=== PATIENT | male | born 1940 | race Hispanic/Latino ===

== ENCOUNTER 2017-08-01 12:52 | Inpatient (IN) | payer OTHER ==
[~2017-08-01] VITALS: Ht 177.8 cm; Wt 128.1 kg
[~2017-08-01 12:52] MED LIST: ASPIR 8181 MG PO; BENADRYL25 M1 PO; DOXAZOSIN MESYLA8 MG PO; FELODIPINE ER5 MG PO; FLONASE16 GM NS; GLIPIZIDE5 MG PO; HYDROCHLOROTHIA25 GM PO; ISOSORBIDE MONO20 MG PO; LEVAQUIN500 MG PO; LIDODERM700 MG TOP; LOSARTAN POTASS25 MG PO; MELOXICAM7.5 MG PO; METFORMIN HCL500 M1 PO; METOPROLOL SUCC50 MG PO; MULTI-VITAMIN1 EACH PO; NITROSTAT0.4 MG SL; NORCO 7.5-3251 EACH PO; OMEGA 3 1,0001 EACH PEG; PANTOPRAZOLE SO20 MG PO; PAXIL20 MG PO; PILOCARPINE HCL5 MG PO; PLAVIX75 MG PO; PROTONIX40 MG/ML PO; TYLENOL WITH C1 EACH PO; VITAMIN D1000 UNIT PO; [UNRECOGNIZED DRUG - CODE]
[2017-08-01] MEDS ORDERED: MORPHINE SULFATE 4 MG/ML SYR IV STA (14:03)
[2017-08-01] MEDS ORDERED: SODIUM CHLORIDE 0.9% 500ML 500 ML IV STA (14:03)
[2017-08-01] MEDS ORDERED: ONDANSETRON HCL INJ 2 MG/ML VIAL IV STA (14:03)
[2017-08-01] MEDS ORDERED: DIATRIZOATE MEGL/DIATRIZOA SOD 30 ML BTL PO ONE (14:43)
[2017-08-01 14:56] LABS: BILIRUBIN,URINE NEGATIVE (NEGATIVE); CLARITY,URINE CLEAR (CLEAR); COLOR,URINE YELLOW (YELLOW); KETONES,URINE NEGATIVE (NEGATIVE); LEUKOCYTE ESTERASE ,URINE NEGATIVE (NEGATIVE); NITRITE,URINE NEGATIVE (NEGATIVE); PROTEIN,URINE DIPSTICK NEGATIVE (NEGATIVE); URINE UROBILINOGEN 0.2 mg/dL (0.2 - 1)
[2017-08-01 15:20] LABS: EPITHELIAL CELLS,URINE RARE /LPF
[2017-08-01 15:57] LABS: BASOPHILS % 0.3 % (0.0-1.0); EOSINOPHILS # (AUTO) 0.1 (0.0-0.4); EOSINOPHILS % 0.9 % (0.0-6.0); HEMOGLOBIN 15.3 g/dL (14.0-18.0); LYMPHOCYTES # (AUTO) 1.5 (1.0-3.2); LYMPHOCYTES % 14.1 % (18.0-39.1); MEAN CORPUSCULAR HEMOGLOBIN 30.2 pg (28-32); MEAN CORPUSCULAR HGB CONC 34.8 g/dL (31-35); MONOCYTES # (AUTO) 0.7 (0.2-0.8); MONOCYTES % 6.8 % (4.4-11.3); NEUTROPHILS % 77.3 % (38.7-80.0); PLATELET COUNT 163 x10e3/uL (140-360); RED BLOOD COUNT 5.06 x10e6/uL (4.3-5.7); RED CELL DISTRIBUTION WIDTH 13.5 % (11.7-14.4)
[2017-08-01 16:14] LABS: INR 1.1; PROTHROMBIN TIME 13.4 seconds (11.9-14.5)
[2017-08-01 16:25] LABS: ALANINE AMINOTRANSFERASE 37 IU/L (0-55); ALBUMIN 4.2 g/dL (3.5-5.0); ALBUMIN/GLOBULIN RATIO 1.3 (0.8-2.0); ALKALINE PHOSPHATASE 74 IU/L (40-150); AMYLASE 81 U/L (25-125); ANION GAP 12.6 mmol/L (8-16); BLOOD UREA NITROGEN 17 mg/dL (7-26); BUN/CREATININE RATIO 19 (6-25); CALCIUM 9.7 mg/dL (8.4-10.2); CARBON DIOXIDE 26 mmol/L (22-29); CHLORIDE 105 mmol/L (98-107); CREATINE KINASE 72 IU/L (30-200); EST GLOMERULAR FILTRATION RATE > 60 ML/MIN (60-); GLUCOSE 130 mg/dL (74-118); LIPASE 19 U/L (8-78); POTASSIUM 3.6 mmol/L (3.5-5.1); SODIUM 140 mmol/L (136-145)
[2017-08-01 16:45] LABS: THYROID STIMULATING HORMONE 0.615 uIU/mL (0.350-4.940)
--- NOTE | 2017-08-01 17:25 | Diagnostic Imaging Report ---
PROCEDURE: CHEST SINGLE (PORTABLE) COMPARISON: Patients [facility], DX, CHEST SINGLE (PORTABLE), 09/21/2014, 11:09. INDICATIONS: UPPER ABD PAIN FINDINGS: LUNGS: No consolidations or edema. No mass. PLEURA: Stable eventration of the right diaphragm. No effusions or pneumothorax. HEART \T\ MEDIASTINUM: Mild stable cardiomegaly. Vascular markings are normal. BONES \T\ SOFT TISSUES: Median sternotomy wires are intact. There are surgical anchors in the left humeral head. CONCLUSION: Stable cardiomegaly without vascular congestion. Stable eventration of the right diaphragm. Dictated by: Vicki Xavier M.D. on 08/01/2017 at 17:26 Electronically approved by: Vicki Xavier M.D. on 08/01/2017 at 17:26
--- NOTE | 2017-08-01 17:38 | Diagnostic Imaging Report ---
PROCEDURE:CT ABDOMEN AND PELVIS WITH CONTRAST COMPARISON:[facility], CT, CT ABDOMEN/PELVIS W, 09/21/2014, 4:19. INDICATIONS:HERNIA, SMALL BOWEL OBSTUCTION TECHNIQUE: Multidetector CT scanning of the abdomen and pelvis was performed after the administration of 100 cc of nonionic contrast. Oral contrast was administered. Coronal and sagittal reformations were obtained. Routine protocol performed. FINDINGS: Lung bases: Stable eventration of the right diaphragm with overlying subsegmental atelectasis or scar. The heart is enlarged. There calcifications of the coronary arteries as well as the mitral and aortic valves. No pericardial effusion. The esophagus is normal. Liver: Diffusely decreased in attenuation with multiple punctate calcifications consistent with granulomatous inflammation. No soft tissue mass Biliary: Absent. No biliary ductal dilatation Spleen: Normal size and contains punctate calcified granulomata Pancreas: Mild fatty atrophy. No mass of the dictation. Adrenal Glands: No mass Kidneys: Symmetric enhancement. The kidneys are lobulated in contour. Solid-appearing nodule in the upper pole the right kidney measures 8 mm and is stable. Lobulated possibly septated cyst in the lower pole of the right kidney measures 10.6 x 4.0 cm and is stable. No mass in the left kidney. 3 mm calculus in the upper pole of the left kidney. No calculus in the right kidney. No hydronephrosis. Gastrointestinal: There are two low attenuating lesions in the antrum and mid body of the stomach measuring 9 mm. These could represent either lipomas or small amount of fluid. There is a small periampullary duodenal diverticulum. Small bowel loops in the midabdomen are distended with fluid measuring up to 3.8 cm in diameter. There is one small bowel loop with equalized enteric contents. This bowel loop measures 2.7 cm in diameter. Small bowel loops in the right lower quadrant are collapsed. There is mild haziness of the small bowel mesentery. Change sutures in the rectum are stable. The large bowel is nondilated. A few diverticula are present. No abnormal mucosal enhancement. Appendix: Nonvisualized and may be absent. Vasculature: Calcifications throughout the aorta and its tributaries without aneurysmal dilatation. Peritoneum/Retroperitoneum: No free fluid or fluid collection. Bladder: Mildly thickened but under distended. The prostate gland measures 4.3 x 4.8 cm in the axial plane. Lymph nodes: No enlarged abdominal or retroperitoneal lymph nodes. No enlarged mesenteric lymph nodes. Musculoskeletal: Mild to moderate degenerative changes of the lumbar spine. There is grade 1 anterolisthesis of L4 on L5 without pars defects. No compression deformities. No lytic or blastic lesions. Soft tissues: Bilateral fat containing inguinal hernias. No bowel containing hernias. CONCLUSION: 1. Distended small bowel loops suggestive of partial small bowel obstruction, possibly due to adhesion. Continued follow-up with abdominal x-rays to assess enteric contrast progression is recommended. No perforation. 2. Healed granulomatous inflammation. 3. Cholecystectomy. 4. Stable subcentimeter solid mass in the right kidney, concerning for renal cell carcinoma. Lobulated and likely septated cyst in the right kidney is stable. Nonobstructing calculus in the left kidney. 5. Hepatic steatosis. Dictated by: Vicki Xavier M.D. on 08/01/2017 at 17:38 Electronically approved by: Vicki Xavier M.D. on 08/01/2017 at 17:38
[2017-08-01] MEDS ORDERED: SODIUM CHLORIDE 0.9% 250ML IRRIG IR SCH ×2 (18:00→18:45)
--- OUTSIDE RECORDS SUMMARY | 2017-08-01 18:41 | XMS REPORT ---
[facility] Address Unknown Phone Unavailable Care Team Providers Care Visual Education Director Name Role Phone RITA ABBOTT Unavailable Unavailable Problems This patient has no known problems. Allergies, Adverse Reactions, Alerts This patient has no known allergies or adverse reactions. Medications This patient has no known medications. Results Test Description Test Time Test Comments Text Results Atomic Results Result Comments CHEST SINGLE (PORTABLE) [address] [address] Patient Name: STEVE FELIPE MR #: [id number] : 1940 Age/Sex: 76/M Req #: [id number] Adm Physician: Ordered by: KRISHAN NDIAYE [facility] Report #: [id number] Location: ER Room/Bed: Procedure: [id number] DX/CHEST SINGLE (PORTABLE) Exam Date: 08/01/17 Exam Time: 1700 REPORT STATUS: Signed PROCEDURE: CHEST SINGLE (PORTABLE) COMPARISON: [facility], DX, CHEST SINGLE (PORTABLE), 09/21/2014, 11:09. INDICATIONS: UPPER ABD PAIN FINDINGS: LUNGS: No consolidations or edema. No mass. PLEURA: Stable eventration of the right diaphragm. No effusions or pneumothorax. HEART T MEDIASTINUM: Mild stable cardiomegaly. Vascular markings are normal. BONES T SOFT TISSUES: Median sternotomy wires are intact. There are surgical anchors in the left humeral head. CONCLUSION: Stable cardiomegaly without vascular congestion. Stable eventration of the right diaphragm. Dictated by: Carmelo Xavier M.D. on 2017 at 17:26 Electronically approved by: Carmelo Xavier M.D. on 2017 at 17:26 Dictated By: CARMELO XAVIER MD 25 Transcribed By : DUSTIN on 08/01/171725 COPY TO: KR[facility] CT ABDOMEN/PELVIS W [place] [address] Patient Name: STEVE FELIPE MR #: [id number] : 1940 Age/Sex: 76/M Req #: [id number] Adm Physician: Ordered by: KRISHAN NDIAYE [facility] Report # : [id number] Location: ER Room/Bed: Procedure: [id number] CT/CT ABDOMEN/PELVIS W Exam Date: 08/01/17 Exam Time: 1700 REPORT STATUS: Signed PROCEDURE: CT ABDOMEN AND PELVIS WITH CONTRAST COMPARISON: [facility], CT, CT ABDOMEN/ PELVIS W, 09/21/2014, 4:19. INDICATIONS: HERNIA, SMALL BOWEL OBSTUCTION TECHNIQUE: Multidetector CT scanning of the abdomen and pelvis was performed after the administration of 100 cc of nonionic contrast. Oral contrast was administered. Coronal and sagittal reformations were obtained. Routine protocol performed. FINDINGS: Lung bases: Stable eventration of the right diaphragm with overlying subsegmental atelectasis or scar. The heart is enlarged. There calcifications of the coronary arteries as well as the mitral and aortic valves. No pericardial effusion. The esophagus is normal. Liver: Diffusely decreased in attenuation with multiple punctate calcifications consistent with granulomatous inflammation. No soft tissue mass Biliary: Absent. No biliary ductal dilatation Spleen: Normal size and contains punctate calcified granulomata Pancreas: Mild fatty atrophy. No mass of the dictation. Adrenal Glands: No mass Kidneys: Symmetric enhancement. The kidneys are lobulated in contour. Solid-appearing nodule in the upper pole the right kidney measures 8 mm and is stable. Lobulated possibly septated cyst in the lower pole of the right kidney measures 10.6 x 4.0 cm and is stable. No mass in the left kidney. 3 mm calculus in the upper pole of the left kidney. No calculus in the right kidney. No hydronephrosis. Gastrointestinal: There are two low attenuating lesions in the antrum and mid body of the stomach measuring 9 mm. These could represent either lipomas or small amount of fluid. There is a small periampullary duodenal diverticulum. Small bowel loops in the midabdomen are distended with fluid measuring up to 3.8 cm in diameter. There is one small bowel loop with equalized enteric contents. This bowel loop measures 2.7 cm in diameter. Small bowel loops in the right lower quadrant are collapsed. There is mild haziness of the small bowel mesentery. Change sutures in the rectum are stable. The large bowel is nondilated. A few diverticula are present. No abnormal mucosal enhancement. Appendix: Nonvisualized and may be absent. Vasculature: Calcifications throughout the aorta and its tributaries without aneurysmal dilatation. Peritoneum /Retroperitoneum: No free fluid or fluid collection. Bladder: Mildly thickened but under distended. The prostate gland measures 4.3 x 4.8 cm in the axial plane. Lymph nodes: No enlarged abdominal or retroperitoneal lymph nodes. No enlarged mesenteric lymph nodes. Musculoskeletal: Mild to moderate degenerative changes of the lumbar spine. There is grade 1 anterolisthesis of L4 on L5 without pars defects. No compression deformities. No lytic or blastic lesions. Soft tissues: Bilateral fat containing inguinal hernias. No bowel containing hernias. CONCLUSION: 1. Distended small bowel loops suggestive of partial small bowel obstruction, possibly due to adhesion. Continued follow-up with abdominal x- rays to assess enteric contrast progression is recommended. No perforation. 2. Healed granulomatous inflammation. 3. Cholecystectomy. 4. Stable subcentimeter solid mass in the right kidney, concerning for renal cell carcinoma. Lobulated and likely septated cyst in the right kidney is stable. Nonobstructing calculus in the left kidney. 5. Hepatic steatosis. Dictated by: Carmelo Xavier M.D. on 08/01/2017 at 17:38 Electronically approved by: Carmelo Xavier M.D. on 08/01/2017 at 17:38 Dictated By: CARMELO XAVIER MD [id number] Transcribed By: DUSTIN on 08/01/178 COPY TO: KRISHAN NDIAYE NP
[2017-08-01] MEDS ORDERED: BENZOCAINE/TETRACAINE/BUTAMBEN AERO SPRAY 56 GM CAN ONE (19:03)
[2017-08-01] MEDS: HYDROMORPHONE 1MG/1ML INJ IV PRN ×2 (19:06→21:28)
[2017-08-01] MEDS: D5.45%NS/KCL 20MEQ 1,000 ML IV SCH (19:07)
[2017-08-01] MEDS: SODIUM CHLORIDE 0.9% 250ML IRRIG IR SCH ×2 (19:15→22:30)
[2017-08-01] MEDS ORDERED: BENZOCAINE/TETRACAINE/BUTAMBEN AERO SPRAY 56 GM CAN TOP ONE (19:15)
[2017-08-01 20:11] VITALS: BP 163/74
[2017-08-01] MEDS ORDERED: SODIUM CHLORIDE 0.9% 50ML 50 ML ONE (21:01)
[2017-08-01] MEDS ORDERED: IOPAMIDOL 370 MG/ML 200 ML INFUS..BTL INJ ONE (21:01)
[2017-08-01 23:05] VITALS: BP 163/74
[2017-08-02] VITALS: BP 146/67
[2017-08-02] MEDS ORDERED: PIPER-TAZ 3.375 GM/50 ML BAG IV SCH
[2017-08-02] MEDS ORDERED: PIPER-TAZ 3.375 GM 50 ML IV SCH
[2017-08-02 04:00] VITALS: BP 158/67
[2017-08-02] MEDS: HYDROMORPHONE 1MG/1ML INJ IV PRN ×4 (05:25→20:37)
[2017-08-02 07:33] LABS: BASOPHILS % 0.1 % (0.0-1.0); EOSINOPHILS # (AUTO) 0.1 (0.0-0.4); EOSINOPHILS % 1.3 % (0.0-6.0); HEMATOCRIT 41.8 % (38.2-49.6); HEMOGLOBIN 14.5 g/dL (14.0-18.0); LYMPHOCYTES # (AUTO) 1.2 (1.0-3.2); LYMPHOCYTES % 15.8 % (18.0-39.1); MEAN CORPUSCULAR HEMOGLOBIN 30.5 pg (28-32); MEAN CORPUSCULAR HGB CONC 34.7 g/dL (31-35); MONOCYTES # (AUTO) 0.6 (0.2-0.8); MONOCYTES % 8.1 % (4.4-11.3); NEUTROPHILS # (AUTO) 5.7 (2.1-6.9); NEUTROPHILS % 74.4 % (38.7-80.0); PLATELET COUNT 144 x10e3/uL (140-360); RED BLOOD COUNT 4.75 x10e6/uL (4.3-5.7); RED CELL DISTRIBUTION WIDTH 13.3 % (11.7-14.4)
[2017-08-02 07:53] LABS: ANION GAP 10.6 mmol/L (8-16); BLOOD UREA NITROGEN 12 mg/dL (7-26); BUN/CREATININE RATIO 16 (6-25); CALCIUM 8.8 mg/dL (8.4-10.2); CARBON DIOXIDE 23 mmol/L (22-29); CHLORIDE 102 mmol/L (98-107); CREATININE, SERUM 0.76 mg/dL (0.72-1.25); EST GLOMERULAR FILTRATION RATE > 60 ML/MIN (60-); GLUCOSE 141 mg/dL (74-118); POTASSIUM 3.6 mmol/L (3.5-5.1); SODIUM 132 mmol/L (136-145)
[2017-08-02 08:26] VITALS: BP 154/71
[2017-08-02] MEDS: D5.45%NS/KCL 20MEQ 1,000 ML IV SCH (10:27)
[2017-08-02] MEDS: PANTOPRAZOLE 40 MG 10ML VIAL IV SCH (10:28)
--- NOTE | 2017-08-02 10:39 | History and Physical ---
PRIMARY CARE PHYSICIAN: Matt Smith MD QUILL LAYER: Av Valenzuela MD CHIEF COMPLAINT: Abdominal distention and small-bowel obstruction. HISTORY: This is a 76-year-old male who has a small-bowel obstruction and abdominal distention. NG tube was placed with significant output. The patient is otherwise stable. CT scan showed distended small bowel and suggested a small-bowel obstruction. The patient is doing better. PAST SURGICAL HISTORY: A partial rectal and partial colon resection years ago due to large polyps. Cholecystectomy. Spinal stenosis with status post lumbar spine laminectomy. Coronary artery bypass times 4 vessels 13 years ago. Right shoulder surgery. PAST MEDICAL HISTORY: Hypertension, coronary disease, diabetes type 2, obesity and history of small right 8-mm stable kidney mass and also a stable right kidney septated cyst, 10.6 x 4.0 cm. SOCIAL HISTORY: Patient does not smoke or use alcohol. No recreational drugs. HOME MEDICATIONS: List reviewed. ALLERGIES: NO KNOWN ALLERGIES. REVIEW OF SYSTEMS: Small-bowel obstruction, abdominal pain, nausea, vomiting. PHYSICAL EXAMINATION VITAL SIGNS: Temperature is 98. Blood pressure 158/67. Pulse rate 64. Respirations 18. GENERAL: The patient is in no acute distress. He is awake. HEENT: Normocephalic, atraumatic. He is anicteric. NECK: Supple grossly. PULMONARY: Diminished breath sounds. CARDIOVASCULAR: Regular rate and rhythm. ABDOMEN: Obese, less distention. EXTREMITIES: No cyanosis or edema. NEUROLOGIC: There is no focal deficit. LABORATORY: Sodium is 132, potassium 3.6, chloride 102, bicarb 23, BUN 12, creatinine 0.7, glucose 141. WBC 7.6, hemoglobin 14.5, hematocrit 41.8, platelets 144. IMPRESSION 1. Small-bowel obstruction. 2. A small renal mass, 8 mm, and also right renal cyst. 3. Abdominal pain, nausea and vomiting, improving with nasogastric tube placement. PLAN: Continue with current management. KUB. Home medications if able. Nothing by mouth for now. Consultation Dr. Av Valenzuela. Continue to monitor the patient's renal mass. Discussed with spouse and the patient as well. Will repeat his lab work. Job#: [id number]
[2017-08-02] MEDS: LIDOCAINE 5% PATCH TP SCH (11:00)
[2017-08-02 11:26] VITALS: BP 154/76
[2017-08-02] MEDS: METOPROLOL TARTRATE INJ 1 MG/ML VIAL IV SCH ×2 (12:00→18:00)
--- NOTE | 2017-08-02 15:03 | Consultation ---
DATE OF CONSULTATION: August 02, 2017 The patient is a 76-year-old male presents with complaints of abdominal pain. He has associated nausea and vomiting one time. Symptoms started about 2 days ago. He has not had a bowel known for 2 days, but is passing flatus. He has had previous abdominal surgery, previous partial colon resection, as well as cholecystectomy. Patient had a CT scan of the abdomen, which reveals findings suggestive of small-bowel obstruction with dilated proximal bowel and collapsed distal bowel. PAST MEDICAL HISTORY: Significant for previous coronary artery bypass surgery, previous lumbar laminectomy, partial colon resection, cholecystectomy, shoulder surgery. History of diabetes, hypertension, coronary artery disease with coronary bypass surgery as stated above. ALLERGIES: HE HAS NO KNOWN ALLERGIES. MEDICATIONS: At home are listed in the chart. FAMILY HISTORY: Noncontributory. SOCIAL HISTORY: The patient does not smoke cigarettes or drink alcohol. REVIEW OF SYSTEMS: Is as stated above. He has had no fever. No weight loss. PHYSICAL EXAMINATION GENERAL: The patient is awake and alert. VITAL SIGNS: Normal. He is not tachycardic. HEENT: Reveals no scleral icterus. NECK: Has no masses. LUNGS: Equal breath sounds are clear bilaterally. CARDIAC: Regular rate and rhythm with no murmur. ABDOMEN: Distended. There is mild diffuse tenderness. There is no mass. There is no hernia apparent. There is healed wounds in the upper abdomen, as well as in the lower midline. There is no mass. EXTREMITIES: Have no edema. NEUROLOGIC: Grossly intact. LAB TESTS: The white blood count on admission was 10.37. Repeat 7.67. Hemoglobin and hematocrit are normal. Platelet count is normal. Chemistries are essentially normal. ASSESSMENT: A 76-year-old male with findings of small-bowel obstruction seen on computerized tomography scan. He is stable at this time, although he says he is not passing anything but a small amount of flatus. No bowel movement. Plan to repeat the abdominal x-ray today and tomorrow morning. There are no signs of peritonitis. No signs of ischemic bowel. Thank you for asking me to see Mr. Connors. Job#: [id number] OR
[2017-08-02 15:43] VITALS: BP 175/79
[2017-08-02] MEDS: ONDANSETRON HCL INJ 2 MG/ML VIAL IV PRN (15:47)
[2017-08-02] MEDS: PIPER-TAZ 3.375 GM 50 ML IV SCH (18:25)
[2017-08-02 20:00] VITALS: BP 115/77
[2017-08-03] VITALS (7 sets, daily range): BP systolic 143–205; BP diastolic 67–90
[2017-08-03] MEDS: PIPER-TAZ 3.375 GM 50 ML IV SCH ×4 (00:01→17:18)
[2017-08-03] MEDS: METOPROLOL TARTRATE INJ 1 MG/ML VIAL IV SCH ×4 (00:02→17:17)
[2017-08-03] MEDS: ONDANSETRON HCL INJ 2 MG/ML VIAL IV PRN ×6 (00:25→22:29)
[2017-08-03] MEDS: HYDROMORPHONE 1MG/1ML INJ IV PRN ×5 (00:25→22:25)
[2017-08-03] MEDS: D5.45%NS/KCL 20MEQ 1,000 ML IV SCH (00:26)
--- NOTE | 2017-08-03 07:25 | Diagnostic Imaging Report ---
PROCEDURE:ABDOMEN COMP INCL UPR OR DECUB INDICATION:Small bowel obstruction COMPARISON:CT abdomen and pelvis 08/01/2017. FINDINGS: Interval placement of an enteric tube, with the tip projecting over the expected region of the pylorus. Interval migration of enteric contrast material ingested for CT examination 08/01/2017 to the colon. Persistent mild dilatation of multiple loops of small bowel to a maximum of 4.4 cm. No luli pneumoperitoneum on the upright radiograph. Regional skeletal structures are grossly intact. CONCLUSION: Interval migration of enteric contrast material to the colon suggests partial small bowel obstruction in the setting of persistent small bowel dilatation. No luli pneumoperitoneum. Dictated by: Av Puga M.D. on 08/03/2017 at 7:25 Electronically approved by: Av Puga M.D. on 08/03/2017 at 7:25
[2017-08-03 07:27] LABS: BASOPHILS % 0.1 % (0.0-1.0); EOSINOPHILS # (AUTO) 0.2 (0.0-0.4); EOSINOPHILS % 1.9 % (0.0-6.0); HEMATOCRIT 44.7 % (38.2-49.6); HEMOGLOBIN 15.7 g/dL (14.0-18.0); LYMPHOCYTES # (AUTO) 1.8 (1.0-3.2); LYMPHOCYTES % 19.7 % (18.0-39.1); MEAN CORPUSCULAR HEMOGLOBIN 30.6 pg (28-32); MEAN CORPUSCULAR HGB CONC 35.1 g/dL (31-35); MEAN CORPUSCULAR VOLUME 87.1 fL (81-99); MONOCYTES # (AUTO) 0.9 (0.2-0.8); MONOCYTES % 9.1 % (4.4-11.3); NEUTROPHILS # (AUTO) 6.4 (2.1-6.9); NEUTROPHILS % 68.9 % (38.7-80.0); PLATELET COUNT 155 x10e3/uL (140-360); RED BLOOD COUNT 5.13 x10e6/uL (4.3-5.7); RED CELL DISTRIBUTION WIDTH 13.2 % (11.7-14.4)
[2017-08-03 07:47] LABS: MAGNESIUM 1.8 MG/DL (1.3-2.1); PHOSPHORUS 3.2 MG/DL (2.3-4.7)
[2017-08-03 07:48] LABS: ANION GAP 11.1 mmol/L (8-16); BLOOD UREA NITROGEN 9 mg/dL (7-26); BUN/CREATININE RATIO 11 (6-25); CALCIUM 9.2 mg/dL (8.4-10.2); CARBON DIOXIDE 28 mmol/L (22-29); CHLORIDE 104 mmol/L (98-107); CREATININE, SERUM 0.84 mg/dL (0.72-1.25); EST GLOMERULAR FILTRATION RATE > 60 ML/MIN (60-); GLUCOSE 142 mg/dL (74-118); POTASSIUM 4.1 mmol/L (3.5-5.1); SODIUM 139 mmol/L (136-145)
[2017-08-03 08:14] LABS: THYROID STIMULATING HORMONE 2.214 uIU/mL (0.350-4.940)
[2017-08-03] MEDS: LIDOCAINE 5% PATCH TP SCH (09:00)
[2017-08-03] MEDS: PANTOPRAZOLE 40 MG 10ML VIAL IV SCH (09:00)
[2017-08-03 09:22] LABS: FOLATE > 20.0 ng/mL (7.0-15.4)
[2017-08-03] MEDS ORDERED: SODIUM CHLORIDE 0.9% 1000ML 1,000 ML IV SCH (13:30)
--- NOTE | 2017-08-03 13:49 | Consultation ---
DATE OF CONSULTATION: August 03, 2017 UROLOGY CONSULTATION REASON FOR CONSULTATION: Right renal mass. HISTORY OF PRESENT ILLNESS: Nabil Connors is a 76-year-old man who passed a kidney stone a number of years ago. He has never had a urological followup for that specific problem to the best of his knowledge nor did he have metabolic stone workup. The patient is here with abdominal pain, and CT revealed a right upper pole small renal mass, and urological consultation was sought. Apparently, the patient has had CT scans in the past that showed irregularity in the kidney there, and he was told it was small and it was benign. The patient denies hematuria, dysuria, or urgency. He denies any urinary tract infections. He does report having enlarged prostate and is taking Cardura 8 mg nightly for that. The patient also takes Topamax for his pains. He has nocturia at least twice. PAST MEDICAL AND SURGICAL HISTORY 1. Status post back surgery. 2. Chronic sciatica. 3. Status post cholecystectomy. 4. Status post excision of 9 cm of colon for a polyp that did contain cancer but was not invading. 5. Status post right shoulder surgery. 6. Diabetes mellitus. 7. Hypertension. 8. Hypercholesterolemia. CURRENT MEDICATIONS: Please refer to the MAR. ALLERGIES: NONE KNOWN. SOCIAL HISTORY: He quit smoking at 18 years old. Denies smoking, ethanol or drug use. Has a very supportive family at the bedside. 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 FAMILY HISTORY: Noncontributory to the active urological problems. REVIEW OF SYSTEMS: As discussed above in the history of present illness and past medical history, otherwise negative for all systems. PHYSICAL EXAMINATION GENERAL: Very pleasant 76-year-old man walking around the room in no apparent distress. VITAL SIGNS: He is currently afebrile, and the vital signs are currently stable. ABDOMEN: Slightly distended. Tender in the epigastrium. There is no costovertebral angle tenderness. There is no obvious evidence of hernia. There is a healed infraumbilical midline scar. The patient has a nasogastric tube in place. GENITOURINARY: Testes are distended bilaterally. Testes and epididymides are bilaterally palpably normal. The patient has a normal uncircumcised male phallus and normal meatus without any lesion. Digital rectal exam is deferred at the present time. For the remaining physical examination systems, please refer to the admission history and physical on the chart. LABORATORY STUDIES: CT scan of the abdomen and pelvis was done as abdominal pain protocol. It reveals a lobulated, possibly septated, cyst in the lower pole of the right kidney that is listed as stable and a solid-appearing nodule in the upper pole of the right kidney, total measures only 8 mm, and that is stable as well. There is a 3-mm calculus in the upper pole of the left kidney and no calculus in the right kidney. There is also evidence of bowel obstruction and hepatic steatosis. The CT scan that was performed here in 2014 reported cyst in the right kidney, but no tumors were mentioned at that time on the reading. White blood cell count is 9320, hemoglobin 15.7, platelets 155,000. His creatinine is normal at 0.84. His calcium is normal at 9.2. PT and PTT are unremarkable. His urinalysis is unremarkable as well. ASSESSMENT 1. An 8-mm right upper pole renal mass that is not very well delineated on this CT done with abdominal pain contrast. 2. Lower pole right renal stone. 3. Small stone in the left kidney. 4. BPH. 5. Nocturia times 2. 6. Current admission for abdominal pain. PLAN 1. Defer management of the abdominal pain to the other physicians on the case. 2. The patient needs urological followup at which point in time we will both follow up his renal mass, work up his recurrent stone disease, as well as decide whether or not management of the stone is warranted. Ongoing urological followup will include evaluation of his BPH and nocturia. Thank you very much for involving us in the care of your patient. We will be happy to follow him along with you, as well as an outpatient. Job#: [id number] cc:PANCHO AN M.D.
[2017-08-03] MEDS ORDERED: HYDRALAZINE HCL 20 MG/ML VIAL IV STA (15:44)
[2017-08-03] MEDS ORDERED: ENALAPRILAT IV INJ 1.25 MG/ML VIAL IV PRN (15:45)
[2017-08-03] MEDS ORDERED: HYDROMORPHONE 1MG/1ML INJ IV PRN ×2 (16:00)
[2017-08-03] MEDS: FLUTICASONE PROPIONATE NASAL SPRAY NS SCH ×2 (16:00→17:00)
[2017-08-03] MEDS: SODIUM CHLORIDE 0.45% 1,000 ML IV SCH (16:00)
[2017-08-03] MEDS ORDERED: ACETAMINOPHEN 1000 MG/100 ML IV PRN (19:30)
[2017-08-03] MEDS ORDERED: LORAZEPAM INJ 2 MG/ML VIAL IV PRN (19:45)
[2017-08-03] MEDS: HYDRALAZINE HCL 20 MG/ML VIAL IV PRN (19:47)
[2017-08-03] MEDS: KETOROLAC TROMETHAMINE 30 MG/ML VIAL IV PRN (19:54)
[2017-08-04] VITALS: BP 162/71
[2017-08-04 00:10] VITALS: BP 179/77
[2017-08-04] MEDS: METOPROLOL TARTRATE INJ 1 MG/ML VIAL IV SCH ×4 (00:30→17:38)
[2017-08-04] MEDS: DIPHENHYDRAMINE HCL INJ 50 MG/ML VIAL IV SCH ×2 (00:34→21:16)
[2017-08-04] MEDS: PIPER-TAZ 3.375 GM 50 ML IV SCH ×4 (00:35→17:41)
[2017-08-04] MEDS: HYDROMORPHONE 1MG/1ML INJ IV PRN ×4 (03:46→22:41)
[2017-08-04] MEDS: ONDANSETRON HCL INJ 2 MG/ML VIAL IV PRN ×3 (03:47→22:41)
[2017-08-04 04:00] VITALS: BP 152/69
[2017-08-04] MEDS: SODIUM CHLORIDE 0.45% 1,000 ML IV SCH ×2 (06:37→22:02)
--- NOTE | 2017-08-04 06:39 | Diagnostic Imaging Report ---
EXAM: ABDOMEN COMP INCL UPR or DECUB, 2 views INDICATION: Small bowel obstruction COMPARISON: None FINDINGS: LINES/TUBES: Nasogastric tube tip terminates in expected location of the antrum of the stomach. BOWEL PATTERN: No evidence for obstruction. Oral contrast is seen throughout the colon to the rectum. SOFT TISSUES: No abnormal calcifications. LUNG BASES: Poorly visualized BONES: No acute findings. IMPRESSION: Nonobstructive bowel gas pattern. Signed by: Dr. Sejal Avila M.D. on 08/04/2017 6:36 AM
[2017-08-04 07:17] LABS: BASOPHILS % 0.2 % (0.0-1.0); EOSINOPHILS # (AUTO) 0.2 (0.0-0.4); EOSINOPHILS % 2.1 % (0.0-6.0); HEMATOCRIT 43.5 % (38.2-49.6); HEMOGLOBIN 15.2 g/dL (14.0-18.0); LYMPHOCYTES # (AUTO) 1.5 (1.0-3.2); LYMPHOCYTES % 17.6 % (18.0-39.1); MEAN CORPUSCULAR HEMOGLOBIN 30.5 pg (28-32); MEAN CORPUSCULAR HGB CONC 34.9 g/dL (31-35); MEAN CORPUSCULAR VOLUME 87.3 fL (81-99); MONOCYTES # (AUTO) 0.8 (0.2-0.8); MONOCYTES % 9.1 % (4.4-11.3); NEUTROPHILS % 70.5 % (38.7-80.0); PLATELET COUNT 172 x10e3/uL (140-360); RED BLOOD COUNT 4.98 x10e6/uL (4.3-5.7); RED CELL DISTRIBUTION WIDTH 13.2 % (11.7-14.4)
[2017-08-04] MEDS: KETOROLAC TROMETHAMINE 30 MG/ML VIAL IV PRN ×2 (07:28→15:15)
[2017-08-04 07:49] LABS: ANION GAP 12.4 mmol/L (8-16); BLOOD UREA NITROGEN 12 mg/dL (7-26); BUN/CREATININE RATIO 15 (6-25); CALCIUM 9.3 mg/dL (8.4-10.2); CARBON DIOXIDE 28 mmol/L (22-29); CHLORIDE 105 mmol/L (98-107); CREATININE, SERUM 0.81 mg/dL (0.72-1.25); EST GLOMERULAR FILTRATION RATE > 60 ML/MIN (60-); GLUCOSE 120 mg/dL (74-118); POTASSIUM 4.4 mmol/L (3.5-5.1); SODIUM 141 mmol/L (136-145)
[2017-08-04 08:00] VITALS: BP 176/73
[2017-08-04] MEDS: PANTOPRAZOLE 40 MG 10ML VIAL IV SCH (09:27)
[2017-08-04] MEDS: LIDOCAINE 5% PATCH TP SCH (09:27)
[2017-08-04] MEDS: FLUTICASONE PROPIONATE NASAL SPRAY NS SCH ×2 (10:39→16:14)
[2017-08-04 12:00] VITALS: BP 143/65
[2017-08-04 16:00] VITALS: BP 164/72
[2017-08-04] MEDS ORDERED: ENOXAPARIN SOD INJ 40 MG/0.4 ML SYR SC SCH (17:00)
[2017-08-05] VITALS: BP 176/63
[2017-08-05 00:14] VITALS: BP 164/72
[2017-08-05] MEDS: METOPROLOL TARTRATE INJ 1 MG/ML VIAL IV SCH ×3 (00:35→12:15)
[2017-08-05] MEDS: PIPER-TAZ 3.375 GM 50 ML IV SCH ×3 (00:45→12:15)
[2017-08-05 04:00] VITALS: BP 160/73
[2017-08-05] MEDS: ONDANSETRON HCL INJ 2 MG/ML VIAL IV PRN (06:36)
[2017-08-05] MEDS: HYDROMORPHONE 1MG/1ML INJ IV PRN (06:36)
[2017-08-05 07:10] VITALS: BP 170/77
[2017-08-05 07:41] VITALS: BP 170/77
[2017-08-05] MEDS: PANTOPRAZOLE 40 MG 10ML VIAL IV SCH (09:21)
[2017-08-05] MEDS: LIDOCAINE 5% PATCH TP SCH (09:21)
[2017-08-05] MEDS: FLUTICASONE PROPIONATE NASAL SPRAY NS SCH (09:21)
[2017-08-05] MEDS: HYDRALAZINE HCL 20 MG/ML VIAL IV PRN (10:50)
[2017-08-05 11:40] VITALS: BP 173/77
[2017-08-05] MEDS: KETOROLAC TROMETHAMINE 30 MG/ML VIAL IV PRN (12:10)
[2017-08-05] MEDS ORDERED: SENNA LAX8.6 MG PO (13:36)
[2017-08-05] MEDS ORDERED: ZOFRAN ODT4 MG SL (13:38)
--- NOTE | 2017-08-05 15:59 | Discharge Summary ---
CONSULTANTS: Dr. Albaro Valenzuela. FINAL DIAGNOSES: 1. Small-bowel loop, partial small-bowel obstruction. Patient is possible the small-bowel obstruction is secondary to adhesion. 1. Incidental finding of a small subcentimeter solid mass in the right kidney. 2. Lobulated and septated cyst in the right kidney. 3. Hepatic steatosis. 4. Chronic headaches and hypertensive urgency, improving. SUMMARY: This is a 76-year-old male with multiple surgical interventions in the past. The patient is with a previous cholecystectomy. Patient came in with a partial small-bowel obstruction associated nausea and vomiting. Incidental finding of the renal cyst and small lesion as mentioned. The patient was seen by Dr. Albaro Bowling. The patient will follow up with Dr. Albaro Bowling. The patient received nasogastric tube placement. There was significant output. The patient's blood pressure was very elevated, and that was treated with IV medications. He is now able to tolerate a full-liquid diet and able to eat appropriately. The patient is stable. Pain resolved. He is comfortable. He will go home and follow up with his PCP in approximately 1 week. He will follow up with Dr. Albaro Bowling to continue to monitor his renal lesion. The patient is stable, discharged home today. Senna-S 1 tablet twice a day, Zofran ODT 4 mg sublingual q.4 hours as needed for nausea and vomiting, and he will resume his home medication. All questions were answered. The patient is stable, discharged home today. Job#: [id number] EV
[2017-08-06] MEDS ORDERED: BACLOFEN10 MG PO (15:52)
[2017-08-06] MEDS ORDERED: ZANTAC300 MG PO (15:52)
[2017-08-06] MEDS ORDERED: TOPIRAMATE100 MG PO (15:52)
[2017-08-06] MEDS ORDERED: SIMVASTATIN20 MG PO (15:52)
== END 2017-08-05 14:06 | disposition home or self-care (01) | DRG 389 ==
LOC: ER 12:52 → ERHOLD 18:38 → MED/SURG3 19:51
PROVIDERS: ADMIT Internal Medicine; ATTEND Internal Medicine
DX: K56.600 Partial intestinal obstruction, unspecified as to cause (principal); Z68.41 Body mass index [BMI] 40.0-44.9, adult; N20.0 Calculus of kidney; N28.89 Other specified disorders of kidney and ureter; N28.1 Cyst of kidney, acquired; N40.1 Benign prostatic hyperplasia with lower urinary tract symptoms; R35.1 Nocturia; K76.0 Fatty (change of) liver, not elsewhere classified; R51 Headache; I10 Essential (primary) hypertension; I25.10 Atherosclerotic heart disease of native coronary artery without angina pectoris; E11.8 Type 2 diabetes mellitus with unspecified complications; E66.9 Obesity, unspecified; Z95.1 Presence of aortocoronary bypass graft; K56.690 Other partial intestinal obstruction
CPT/HCPCS: 36415; 71045; 74177; 80048; 80053; 81001; 82150; 82550; 82553; 82607; 82746; 82948; 83036; 83690; 83735; 83880; 84100; 84443; 84484; 85025; 85610; 85730; 93005; 96367; 99284; J0360; J1170; J1200; J1650; J1885; J2405; J2543; J7030; J7040; Q9967

== ENCOUNTER 2017-08-06 07:28 | Inpatient (IN) | payer OTHER ==
[~2017-08-06] VITALS: Ht 177.8 cm; Wt 117.0 kg
[~2017-08-06 07:28] MED LIST changes: +SENNA LAX8.6 MG PO; +ZOFRAN ODT4 MG SL
--- OUTSIDE RECORDS SUMMARY | 2017-08-06 07:31 | XMS REPORT | Continuity of Care Document ---
Author Author [facility] Organization [facility] Address [address] [place] [address] Phone Unavailable Care Team Providers Care Magneto Electrician Name Role Phone NONSTAFF PCP Unavailable Insurance Providers Guarantor Nabil Connors Address [address] [place] [address] Email [email or web address] Payer [place] [employer] Policy Number [id number] Subscriber's Name Nabil Connors Relationship 18 Self / Same As Patient Group Number [id number] Group Name UA - Medicare Advantage Divis Effective Date 17 Advance Directives Directive Response Recorded Date/Time Does the patient have an advance directive? No 08/01/17 11:02pm If yes, is advance directive on file with [facility]? No 08/01/17 11:02pm If not on file with [facility] will patient provide a copy? No 08/01/17 11:02pm Do you have a Directive to Physician? No 08/01/17 2:01pm Do you have a Medical Power of Warehouse Shipping Clerk? No 08/01/17 2:01pm Do you have an out of hospital Do Not Resuscitate Order? No 08/01/17 2:01pm Do you have any special needs we should be aware of? No 08/01/17 2:01pm Do you have a support person here with you today? Yes 08/01/17 2:01pm Did patient receive Notice of Privacy Practices? Yes 08/01/17 2:01pm Did patient receive patient rights and responsibilities? Yes 08/01/17 2:01pm Problems Medical Problem Onset Date Status Abdominal pain 09/21/2014 Acute Acute calculous cholecystitis 09/21/2014 Acute Diabetes 09/21/2014 Acute Medications Current Home Medications Medication Dose Units Route Directions Days Qty Instructions Start Date Acetaminophen With Codeine (Tylenol With Codeine #3 Tablet) 1 Each Tablet 300 Mg Oral Three Times A Day as needed for Pain Aspirin (Aspir 81) 81 Mg Tablet.dr 81 Mg Oral Daily [place] Cholecalciferol (Vitamin D3) (Vitamin D) 1,000 Unit Capsule 1,000 Mg Oral Daily Clopidogrel Bisulfate (Plavix) 75 Mg Tablet 75 Mg Oral Daily Diphenhydramine Hcl (Benadryl) 25 Mg Capsule 25 Mg Oral Twice A Day Doxazosin Mesylate 8 Mg Tablet 8 Mg Oral Daily Felodipine (Felodipine Er) 5 Mg Tab.er.24h 5 Mg Oral Daily Fluticasone Propionate (Flonase) 16 Gm [place].susp 0 Ea Nasal Twice A Day 10 Days 09/26/14 Glipizide 5 Mg Tablet 5 Mg Oral Daily Hydrochlorothiazide 25 Gm Powder 25 Mg Oral Daily Isosorbide Mononitrate 20 Mg Tablet 60 Mg Oral Twice A Day Lidocaine (Lidoderm) 700 Mg Adh..patch 1 Patch Topically Daily Losartan Potassium 25 Mg Tablet 25 Mg Oral Daily Metformin Hcl (Metformin Hcl Er) 500 Mg Tab.er.24h 1,000 Mg Oral Daily Metoprolol Succinate 50 Mg Tab.er.24h 100 Mg Oral Daily Multivitamin (Multi-Vitamin Daily) 1 Each Tablet 1 Tab Oral Daily Nitroglycerin (Nitrostat) 0.4 Mg Tab.subl 0.4 Mg Sublingual Every 5 Minutes as needed for Chest Pain [place]-3 Fatty Acids/Fish Oil ([place] 3 1,000 Mg Softgel) 1 Each Capsule 1,000 Mg Peg Tube Three Times A Day Ondansetron (Zofran Odt) 4 Mg Tab.rapdis 4 Mg Sublingual Every 4 Hours as needed for Nausea And Vomiting Pantoprazole Sod (Protonix) 40 Mg/Ml Susp 40 Mg Oral Daily 30 Days 09/26/14 Paroxetine Hcl (Paxil) 20 Mg Tablet 20 Mg Oral Daily [place] Hcl 5 Mg Tablet 5 Mg Oral Three Times A Day Sennosides (Senna Lax) 8.6 Mg Tablet 8.6 Mg Oral Twice A Day Past Home Medications Medication Directions Ordered Status Hydrocodone Bit/Acetaminophen ([place] 7.5-325 Tablet) 1 Each Tablet, 1 Ea Oral Every 4 Hours as needed for Abdominal Pain Discontinued Levofloxacin (Levaquin) 500 Mg Tablet, 500 Mg Oral Daily 09/26/14 Discontinued Meloxicam 7.5 Mg Tablet, 7.5 Mg Oral Daily Discontinued Pantoprazole Sodium 20 Mg Tablet.dr, 40 Mg Oral Daily Discontinued Family History Relationship Condition Age at Onset Recorded Date/Time 33 Father Family history of acute myocardial infarction 50's - 60 2014 9:59am 33 Father Family history of cardiac disorder 50's - 60 09/21/2014 10:00am 32 Mother Family history of acute myocardial infarction 60 years & older 01/2015 9:59am Social History Social History Problem Response Recorded Date/Time Onset Date Status Hx Psychiatric Problems No 08/01/2017 11:02pm Not Applicable Not Applicable Hx Eating Disorder No 08/01/2017 11:02pm Not Applicable Not Applicable Hx Substance Use Disorder No 08/01/2017 11:02pm Not Applicable Not Applicable Hx Depression No 08/01/2017 11:02pm Not Applicable Not Applicable Hx Alcohol Use No 08/01/2017 11:02pm Not Applicable Not Applicable Hx Substance Use Treatment No 08/01/2017 11:02pm Not Applicable Not Applicable Hx Physical Abuse No 08/01/2017 11:02pm Not Applicable Not Applicable Smoking Status Start Date Stop Date Former smoker Hospital Discharge Instructions No hospital discharge instruction information available. Plan of Care Discharge Date 08/05/17 2:06pm Disposition HOME, SELF-CARE Instructions/Education Provided Abdominal Pain - Adult Prescriptions See Medication Section Additional Instructions/Education ACTIVITY TOLERATED REGULAR DIET TOLERATED FOLLOW UP WITH YOUR PRIMARY CARE PHYSICIAN IN 1 WEEK FOLLOW UP WITH DR KATE HERRERA IN 1 MONTH AT [phone] Functional Status Query Response Date Recorded Assistive Devices Straight Cane August 01, 2017 11:05pm Ambulation Ability Independent August 01, 2017 11:05pm Toileting Ability Independent August 05, 2017 9:56am Allergies, Adverse Reactions, Alerts No known allergies. Immunizations No immunization information available. Vital Signs Acute Vital Signs Vital Response Date/Time Temperature (Fahrenheit) 98.6 degrees F (97.6 - 99.5) 08/05/2017 11:40am Pulse Pulse Rate (adult) 75 bpm (60 - 90) 08/05/2017 11:40am Respiratory Rate 18 bpm (12 - 24) 08/05/2017 11:40am Blood Pressure 173/77 mm Hg 08/05/2017 11:40am Height 5 ft 10 in 08/01/2017 1:50pm Weight 282.38 lb 08/04/2017 1:13am Body Mass Index 40.5 kg/m^2 08/04/2017 1:13am Results Laboratory Results Test Name Result Units Flags Reference Collection Date/Time Result Date/ Time Comments White Blood Count 8.54 x10e3/uL 4.8-10.8 08/04/2017 6:49am 08/04/2017 7 :39am Red Blood Count 4.98 x10e6/uL 4.3-5.7 08/04/2017 6:49am 08/04/2017 7: 39am Hemoglobin 15.2 g/dL 14.0-18.0 08/04/2017 6:49am 08/04/2017 7:39am Hematocrit 43.5 % 38.2-49.6 08/04/2017 6:49am 08/04/2017 7:39am Mean Corpuscular Volume 87.3 fL 81-99 08/04/2017 6:49am 08/04/2017 7: 39am Mean Corpuscular Hemoglobin 30.5 pg 28-32 08/04/2017 6:49am 08/04/2017 7:39am Mean Corpuscular Hemoglobin Concent 34.9 g/dL 31-35 08/04/2017 6:49am 08/04/2017 7:39am Red Cell Distribution Width 13.2 % 11.7-14.4 08/04/2017 6:49am 2017 7:39am Platelet Count 172 x10e3/uL 140-360 08/04/2017 6:49am 08/04/2017 7: 39am Neutrophils (%) (Auto) 70.5 % 38.7-80.0 08/04/2017 6:49am 08/04/2017 7: 39am Lymphocytes (%) (Auto) 17.6 % L 18.0-39.1 08/04/2017 6:49am 08/04/2017 7 :39am Monocytes (%) (Auto) 9.1 % 4.4-11.3 08/04/2017 6:49am 08/04/2017 7: 39am Eosinophils (%) (Auto) 2.1 % 0.0-6.0 08/04/2017 6:49am 08/04/2017 7: 39am Basophils (%) (Auto) 0.2 % 0.0-1.0 08/04/2017 6:49am 08/04/2017 7:39am IM GRANULOCYTES % 0.5 % 0.0-1.0 08/04/2017 6:49am 08/04/2017 7:39am Neutrophils # (Auto) 6.0 2.1-6.9 08/04/2017 6:49am 08/04/2017 7:39am Lymphocytes # (Auto) 1.5 1.0-3.2 08/04/2017 6:49am 08/04/2017 7:39am Monocytes # (Auto) 0.8 0.2-0.8 08/04/2017 6:49am 08/04/2017 7:39am Eosinophils # (Auto) 0.2 0.0-0.4 08/04/2017 6:49am 08/04/2017 7:39am Basophils # (Auto) 0.0 0.0-0.1 08/04/2017 6:49am 08/04/2017 7:39am Absolute Immature Granulocyte (auto 0.04 x10e3/uL 0-0.1 08/04/2017 6: 49am 08/04/2017 7:39am Prothrombin Time 13.4 seconds 11.9-14.5 08/01/2017 3:30pm 08/01/2017 4: 16pm Prothromb Time International Ratio 1.10 08/01/2017 3:30pm 2017 4:16pm Oral Anticoagulant Therapy INR Values: 1. Low Intensity Therapy 1.5 - 2.0 2. Moderate Intensity Therapy 2.0 - 3.0 3. High Intensity Therapy(1) 2.5 - 3.5 4. High Intensity Therapy(2) 3.0 - 4.0 5. Panic Value INR > 5.0 Activated Partial Thromboplast Time 36.0 seconds H 23.8-35.5 08/01/2017 3 :30pm 08/01/2017 4:16pm Urine Color YELLOW YELLOW 08/01/2017 1:54pm 08/01/2017 2:57pm Urine Clarity CLEAR CLEAR 08/01/2017 1:54pm 08/01/2017 2:57pm Urine Specific [place] 1.020 1.010-1.025 08/01/2017 1:54pm 2017 2:57pm Urine pH 5 5 - 7 08/01/2017 1:54pm 08/01/2017 2:57pm Urine Leukocyte Esterase NEGATIVE NEGATIVE 08/01/2017 1:54pm 2017 2:57pm Urine Nitrite NEGATIVE NEGATIVE 08/01/2017 1:54pm 08/01/2017 2:57pm Urine Protein NEGATIVE NEGATIVE 08/01/2017 1:54pm 08/01/2017 2:57pm Urine Glucose (UA) NEGATIVE NEGATIVE 08/01/2017 1:54pm 08/01/2017 2: 57pm Urine Ketones NEGATIVE NEGATIVE 08/01/2017 1:54pm 08/01/2017 2:57pm Urine Urobilinogen 0.2 mg/dL 0.2 - 1 08/01/2017 1:54pm 08/01/2017 2: 57pm Urine Bilirubin NEGATIVE NEGATIVE 08/01/2017 1:54pm 08/01/2017 2: 57pm Urine Blood NEGATIVE NEGATIVE 08/01/2017 1:54pm 08/01/2017 2:57pm Urine WBC NONE /HPF 0-5 08/01/2017 1:54pm 08/01/2017 3:20pm Urine RBC NONE /HPF 0-5 08/01/2017 1:54pm 08/01/2017 3:20pm Urine Bacteria NONE /HPF NONE 08/01/2017 1:54pm 08/01/2017 3:20pm Urine Epithelial Cells RARE /LPF NONE 08/01/2017 1:54pm 08/01/2017 3: 20pm Sodium Level 141 mmol/L 136-145 08/04/2017 6:49am 08/04/2017 7:50am Potassium Level 4.4 mmol/L 3.5-5.1 08/04/2017 6:49am 08/04/2017 7:50am Chloride Level 105 mmol/L 98-107 08/04/2017 6:49am 08/04/2017 7:50am Carbon Dioxide Level 28 mmol/L 08/04/2017 6:49am 08/04/2017 7: 50am Anion Gap 12.4 mmol/L 808/04/2017 6:49am 08/04/2017 7:50am Blood Urea Nitrogen 12 mg/dL 12-0808/04/2017 6:49am 08/04/2017 7:50am Creatinine 0.81 mg/dL 0.72-1.25 08/04/2017 6:49am 08/04/2017 7:50am BUN/Creatinine Ratio 15 11-0708/04/2017 6:49am 08/04/2017 7:50am Estimat Glomerular Filtration Rate > 60 ML/MIN 6008/04/2017 6:49am 7:50am Ranges were taken from the National Kidney Disease Education Program and the National Kidney Foundation literature. Reference ranges: 60 or greater: Normal 16-59 (for 3 consecutive months): Chronic kidney disease 15 or less: Kidney failure Glucose Level 120 mg/dL H 74-118 08/04/2017 6:49am 08/04/2017 7:50am Calcium Level 9.3 mg/dL 8.4-10.2 08/04/2017 6:49am 08/04/2017 7:50am Bedside Glucose 162 mg/dL H 70-120 08/05/2017 10:52am 08/05/2017 11: 47am Meter ID: [id number] Hemoglobin A1c Percent 5.4 % 4.0-7.0 08/03/2017 7:00am 08/03/2017 7: 55am Phosphorus Level 3.2 MG/DL 2.3-4.7 08/03/2017 7:00am 08/03/2017 7:49am Magnesium Level 1.8 MG/DL 1.3-2.1 08/03/2017 7:00am 08/03/2017 7:49am Total Bilirubin 1.2 mg/dL 0.2-1.2 08/01/2017 3:30pm 08/01/2017 4:27pm Aspartate Amino Transf (AST/SGOT) 24 IU/L 5-34 08/01/2017 3:30pm 2017 4:27pm Alanine Aminotransferase (ALT/SGPT) 37 IU/L 0-55 08/01/2017 3:30pm 4:27pm Total Protein 7.4 g/dL 6.5-8.1 08/01/2017 3:30pm 08/01/2017 4:27pm Albumin 4.2 g/dL 3.5-5.0 08/01/2017 3:30pm 08/01/2017 4:27pm Globulin 3.2 g/dL 2.3-3.5 08/01/2017 3:30pm 08/01/2017 4:27pm Albumin/Globulin Ratio 1.3 0.8-2.0 08/01/2017 3:30pm 08/01/2017 4: 27pm Alkaline Phosphatase 74 IU/L 40-150 08/01/2017 3:30pm 08/01/2017 4: 27pm B-Type Natriuretic Peptide 43.5 pg/mL 0-100 08/01/2017 3:30pm 2017 4:20pm Creatine Kinase 72 IU/L 30-200 08/01/2017 3:30pm 08/01/2017 4:27pm Creatine Kinase MB 5.60 ng/mL H 0-5.0 08/01/2017 3:30pm 08/01/2017 4: 45pm Troponin I 0.022 ng/mL 0-0.300 08/01/2017 3:30pm 08/01/2017 4:45pm Amylase Level 81 U/L 25-125 08/01/2017 3:30pm 08/01/2017 4:27pm Lipase 19 U/L 8-78 08/01/2017 3:30pm 08/01/2017 4:27pm Vitamin B12 Level 360 pg/mL 213-816 08/03/2017 7:00am 08/03/2017 9: 22am Folate > 20.0 ng/mL H 7.0-15.4 08/03/2017 7:00am 08/03/2017 9:22am Thyroid Stimulating Hormone (TSH) 2.214 uIU/mL 0.350-4.940 08/03/2017 7: 00am 08/03/2017 8:17am Procedures Procedure Status Date Provider(s) Computed tomography of abdomen and pelvis with contrast Active 08/01/17 KRISHAN NDIAYE MEDIA RELATIONS MANAGER Encounters Encounter Location Arrival/Admit Date Discharge/Depart Date Attending Provider Discharged Inpatient [facility] 08/01/17 6:38pm 08/05/17 2:06pm APRIL CROUCH MD
[2017-08-06] MEDS ORDERED: SODIUM CHLORIDE 0.9% 1000ML 1,000 ML IV STA (08:23)
[2017-08-06] MEDS ORDERED: NITROGLYCERIN 2% OINT 1 GM PKT TOP ONE (08:30)
[2017-08-06] MEDS ORDERED: SODIUM CHLORIDE 0.9% 1000ML 1,000 ML ONE (08:37)
[2017-08-06] MEDS ORDERED: NITROGLYCERIN 2% OINT 1 GM PKT ONE (08:38)
[2017-08-06 08:56] LABS: BASOPHILS % 0.5 % (0.0-1.0); EOSINOPHILS # (AUTO) 0.4 (0.0-0.4); EOSINOPHILS % 5.4 % (0.0-6.0); HEMATOCRIT 40.4 % (38.2-49.6); HEMOGLOBIN 14.4 g/dL (14.0-18.0); LYMPHOCYTES # (AUTO) 1.9 (1.0-3.2); LYMPHOCYTES % 29.1 % (18.0-39.1); MEAN CORPUSCULAR HEMOGLOBIN 30.4 pg (28-32); MEAN CORPUSCULAR HGB CONC 35.6 g/dL (31-35); MEAN CORPUSCULAR VOLUME 85.4 fL (81-99); MONOCYTES # (AUTO) 0.6 (0.2-0.8); MONOCYTES % 8.9 % (4.4-11.3); NEUTROPHILS # (AUTO) 3.7 (2.1-6.9); NEUTROPHILS % 55.6 % (38.7-80.0); PLATELET COUNT 157 x10e3/uL (140-360); RED BLOOD COUNT 4.73 x10e6/uL (4.3-5.7); RED CELL DISTRIBUTION WIDTH 13.1 % (11.7-14.4)
[2017-08-06 09:00] LABS: INR 1.1; PROTHROMBIN TIME 13.4 seconds (11.9-14.5)
[2017-08-06 09:01] LABS: PARTIAL THROMBOPLASTIN TIME 35.4 seconds (23.8-35.5)
--- NOTE | 2017-08-06 09:05 | Diagnostic Imaging Report ---
Examination: Single AP view of the chest. COMPARISON: [facility] 08/04/2017 INDICATION: Chest pain, substernal pain IMPRESSION: 1. Lines and Tubes: None 2. Lungs are grossly clear. No consolidation or effusion. Stable elevation of the right hemidiaphragm, which may be due to eventration. 3. Mild prominence of the cardiac silhouette, which may be partly due to AP projection. Pulmonary vasculature is normal. 4. No acute bony abnormalities. Signed by: Dr. Elton Vazquez M.D. on 08/06/2017 9:00 AM
[2017-08-06 09:08] LABS: ALANINE AMINOTRANSFERASE 32 IU/L (0-55); ALBUMIN 3.5 g/dL (3.5-5.0); ALBUMIN/GLOBULIN RATIO 1.2 (0.8-2.0); ALKALINE PHOSPHATASE 78 IU/L (40-150); ANION GAP 12.3 mmol/L (8-16); BLOOD UREA NITROGEN 17 mg/dL (7-26); BUN/CREATININE RATIO 21 (6-25); CALCIUM 9.1 mg/dL (8.4-10.2); CARBON DIOXIDE 25 mmol/L (22-29); CHLORIDE 104 mmol/L (98-107); EST GLOMERULAR FILTRATION RATE > 60 ML/MIN (60-); GLUCOSE 150 mg/dL (74-118); LIPASE 43 U/L (8-78); POTASSIUM 3.3 mmol/L (3.5-5.1); SODIUM 138 mmol/L (136-145)
[2017-08-06] MEDS ORDERED: ASPIRIN 81 MG CHEW TAB PO ONE ×3 (09:15→20:00)
[2017-08-06] MEDS ORDERED: ONDANSETRON HCL INJ 2 MG/ML VIAL IV ONE (09:30)
[2017-08-06] MEDS ORDERED: MORPHINE SULFATE 2 MG/ML SYR IV ONE ×2 (09:30→11:00)
[2017-08-06 09:34] LABS: CREATINE KINASE MB 2.6 ng/mL (0-5.0)
--- NOTE | 2017-08-06 10:02 | Diagnostic Imaging Report ---
EXAMINATION: CT of the chest with contrast, PE protocol. TECHNIQUE: Spiral CT images of the chest were performed from the lung apices through the level of the adrenal glands after the IV administration of 100 cc of Isovue 370. Thin section reconstructions were obtained with special concentration on the pulmonary arteries. COMPARISON: CT abdomen and pelvis 08/01/2017 CLINICAL HISTORY:Chest pain, substernal, weakness DISCUSSION: Mildly limited exam due to suboptimal contrast timing Lungs: No filling defects are identified in the main, right or left pulmonary arteries to their segmental levels to suggest pulmonary embolism. Stable linear opacities in the lingula, anterior right middle lobe and anterior right lower lobe likely representing scarring. No consolidation, masses or pulmonary nodules. Airways: Airways are clear, without other bronchial lesions. Pleura: No effusion or pneumothorax. Heart and mediastinum: Thyroid is unremarkable. Heart size is normal. No pericardial effusion. Aorta is nonaneurysmal. Main pulmonary artery is normal in caliber, measuring 2.9 cm. Atherosclerotic calcification of the coronary arteries, thoracic aortic arch and arch branches. Lymph nodes: No mediastinal, hilar or axillary adenopathy. Abdomen: The visualized portions of the pancreas and adrenal glands are unremarkable. Borderline low attenuation of the hepatic parenchyma, likely reflecting steatosis. Multiple calcified hepatic and splenic granulomata. Bones and soft tissues: No aggressive lytic lesions. Degenerative disc changes in the thoracic spine. Midline sternotomy wires. IMPRESSION: 1. Mildly limited exam, as described above. No CT evidence of pulmonary embolism, within the limitations of the exam. 2. Stable scarring in the lingula, anterior right middle lobe and anterior right lower lobe. No consolidation or effusion. 3. Hepatic steatosis. Signed by: Dr. Elton Vazquez M.D. on 08/06/2017 9:58 AM
[2017-08-06] MEDS ORDERED: ENOXAPARIN SODIUM INJ 100 MG/ML SYR SC SCH ×2 (10:30→11:00)
[2017-08-06] MEDS ORDERED: NITROGLYCERIN 0.4 MG SUBL SL PRN (10:30)
[2017-08-06 10:37] LABS: BILIRUBIN,URINE NEGATIVE (NEGATIVE); KETONES,URINE 1+ (NEGATIVE); LEUKOCYTE ESTERASE ,URINE NEGATIVE (NEGATIVE); NITRITE,URINE NEGATIVE (NEGATIVE); PROTEIN,URINE DIPSTICK NEGATIVE (NEGATIVE); URINE UROBILINOGEN 8 mg/dL (0.2 - 1)
[2017-08-06 10:40] LABS: CLARITY,URINE CLEAR (CLEAR); COLOR,URINE YELLOW (YELLOW)
[2017-08-06] MEDS ORDERED: DEXTROSE 50% SYRINGE 50 ML IV PRN (10:45)
[2017-08-06 10:58] LABS: EPITHELIAL CELLS,URINE RARE /LPF
[2017-08-06] MEDS: INSULIN REGULAR, HUMAN 100 UNIT/1 ML 3ML VIAL SQ SCH ×3 (11:31→21:00)
[2017-08-06 12:00] VITALS: BP 113/52
[2017-08-06] MEDS ORDERED: NITROGLYCERIN 2% OINT 1 GM PKT TOP SCH (12:00)
[2017-08-06] MEDS ORDERED: ONDANSETRON HCL 4 MG ORAL DISINTEGRATING TAB SL PRN (12:00)
[2017-08-06] MEDS: ISOSORBIDE MONONITRATE 20 MG TAB PO SCH ×2 (12:15→16:53)
[2017-08-06] MEDS: LOSARTAN POTASSIUM 25 MG TAB PO SCH (12:15)
[2017-08-06] MEDS: FELODIPINE 5 MG TAB CR PO SCH (12:15)
[2017-08-06] MEDS ORDERED: DIATRIZOATE MEGL/DIATRIZOA SOD 30 ML BTL PO ONE (12:37)
[2017-08-06] MEDS ORDERED: SODIUM CHLORIDE 0.9% 50ML 50 ML ONE (12:38)
[2017-08-06] MEDS ORDERED: IOPAMIDOL 370 MG/ML 200 ML INFUS..BTL INJ ONE (12:39)
[2017-08-06] MEDS: FAMOTIDINE 20 MG TAB PO SCH ×3 (13:52→22:30)
[2017-08-06] MEDS: CLOPIDOGREL BISULFATE 75 MG TAB PO SCH (13:52)
[2017-08-06 14:36] VITALS: BP 111/64
[2017-08-06] MEDS ORDERED: PILOCARPINE HCL 5 MG PO SCH (15:00)
--- NOTE | 2017-08-06 15:07 | Diagnostic Imaging Report ---
EXAMINATION: CT of the abdomen and pelvis without contrast. TECHNIQUE: Spiral CT images of the abdomen and pelvis were performed from the lung bases to the lesser trochanters. No intravenous contrast was given per physician's request. Oral dilute Gastrografin was given.. Coronal and sagittal reformatted images were obtained. COMPARISON: CT abdomen and pelvis with contrast 08/01/2017 CLINICAL HISTORY:Abdominal tenderness, recent small bowel obstruction DISCUSSION: ABSENCE OF INTRAVENOUS CONTRAST DECREASES SENSITIVITY FOR DETECTION OF FOCAL LESIONS AND VASCULAR PATHOLOGY. ABDOMEN/PELVIS: LOWER THORAX: Please see CT chest performed same day for further detail. HEPATOBILIARY: Diffuse hepatic steatosis. Multiple scattered calcified granulomata. No other focal lesions. No intra or extrahepatic biliary ductal dilation. GALLBLADDER: Cholecystectomy clips. SPLEEN: No splenomegaly. Calcified granulomata PANCREAS: No focal masses or ductal dilatation. ADRENALS: No adrenal nodules. KIDNEYS/URETERS: No hydronephrosis, stones, or solid mass lesions. Stable 0.8 cm hyperdense lesion in the superior pole of the right kidney (series 2, image 34). Residual excreted contrast is noted in the collecting systems of both kidneys and bladder. PELVIC ORGANS/BLADDER: Bladder is unremarkable, without focal lesions. Prostate is unremarkable. PERITONEUM/RETROPERITONEUM: No free air or fluid. LYMPH NODES: No intra-abdominal,retroperitoneal, pelvic or inguinal lymphadenopathy. VESSELS: Atherosclerotic calcification of the abdominal aorta and iliac vessels. GI TRACT: No bowel dilation or evidence of obstruction. No pericolonic inflammatory changes. No intraluminal masses. Stomach is unremarkable. BONES AND SOFT TISSUES: No aggressive lytic lesions. Altered level degenerative disc changes in the lower thoracic and lumbosacral spine. Degenerative joint disease in the form of facet hypertrophy at L5-S1. Bilateral stable fat-containing inguinal hernias. IMPRESSION: 1. No acute abdominopelvic abnormalities. Specifically, no evidence of bowel dilation or obstruction. 2. Diffuse hepatic steatosis. 3. Prior granulomatous disease. 4. Stable 0.8 cm hyperdense lesion in the superior pole of the right kidney, likely representing a hemorrhagic cyst. Signed by: Dr. Elton Vazquez M.D. on 08/06/2017 3:03 PM
[2017-08-06] MEDS ORDERED: SIMVASTATIN20 MG PO (15:52)
[2017-08-06] MEDS ORDERED: TOPIRAMATE100 MG PO (15:52)
[2017-08-06] MEDS ORDERED: BACLOFEN10 MG PO (15:52)
[2017-08-06] MEDS ORDERED: ZANTAC300 MG PO (15:52)
[2017-08-06 16:03] VITALS: BP 104/55
[2017-08-06 16:31] LABS: CREATINE KINASE MB 3.3 ng/mL (0-5.0)
[2017-08-06] MEDS: FLUTICASONE PROPIONATE NASAL SPRAY NS SCH (16:53)
[2017-08-06] MEDS: DIPHENHYDRAMINE HCL 25 MG CAP PO SCH (16:53)
[2017-08-06] MEDS: SENNOSIDES 8.6 MG TAB PO SCH (16:54)
[2017-08-06] MEDS ORDERED: ISOSORBIDE MONONITRATE 20 MG TAB PO SCH (17:00)
[2017-08-06] MEDS: ONDANSETRON HCL INJ 2 MG/ML VIAL IV PRN (17:59)
[2017-08-06] MEDS: MORPHINE SULFATE 2 MG/ML SYR IV PRN ×2 (17:59→22:56)
[2017-08-06] MEDS ORDERED: POTASSIUM CHLORIDE 20 MEQ TAB CR PO STA (19:56)
[2017-08-06 20:00] VITALS: BP 130/55
[2017-08-06] MEDS: METOPROLOL SUCCINATE 50 MG TAB XL PO SCH (20:55)
[2017-08-06] MEDS ORDERED: NON-FORMULARY MEDICATION (Ranitidine Hcl (Zantac) 300 MG) PO SCH (21:00)
[2017-08-06] MEDS: SIMVASTATIN 20 MG TAB PO SCH (22:55)
[2017-08-07] VITALS (7 sets, daily range): BP systolic 122–169; BP diastolic 56–87
--- NOTE | 2017-08-07 01:09 | Consultation ---
DATE OF CONSULTATION: August 06, 2017 CARDIOLOGY CONSULTATION I am taking calls for Dr. Degroot. DIAGNOSES: 1. Angina pectoris. 2. Coronary artery disease, bypass surgery about 14 years ago bypass done at [facility], 1928–1983. . 3. Hypertension. 4. Hyperlipidemia. 5. Type 2 diabetes mellitus. 6. Subacute intestinal obstruction. Patient was discharged only yesterday from this hospital for subacute intestinal obstruction, this is only by history. Patient at this time complained of couple of times substernal chest pain and patient's chest pain is relieved with morphine, but still has got mild pain. However, the EKG showed only nonspecific ST-T changes. The troponins are negative at this time. Clinically, there is no evidence of congestive heart failure or cardiac murmur. Lungs are normal. Abdomen at this time is soft. Patient does not have any abdominal pain. Patient has good bowel movements I believe. At this time, there is no evidence of any acute myocardial infarction. He may be having angina pectoris, so I am going to put him on Lovenox, another cardiac medication including aspirin, Plavix, anticholesterol, antihypertensive, and antidiabetic medications. Will do 1 more troponin in the morning and EKG. Potassium was low and potassium will be replaced at this time. Patient at this time is quite stable. Job#: [id number] DR KENDALL
[2017-08-07 03:30] LABS: CREATINE KINASE MB 2.3 ng/mL (0-5.0)
[2017-08-07 06:06] LABS: BASOPHILS % 0.3 % (0.0-1.0); EOSINOPHILS # (AUTO) 0.4 (0.0-0.4); EOSINOPHILS % 5.7 % (0.0-6.0); HEMATOCRIT 40.9 % (38.2-49.6); HEMOGLOBIN 14.3 g/dL (14.0-18.0); LYMPHOCYTES % 31.2 % (18.0-39.1); MEAN CORPUSCULAR HEMOGLOBIN 30.4 pg (28-32); MEAN CORPUSCULAR VOLUME 86.8 fL (81-99); MONOCYTES # (AUTO) 0.6 (0.2-0.8); MONOCYTES % 8.8 % (4.4-11.3); NEUTROPHILS # (AUTO) 3.4 (2.1-6.9); NEUTROPHILS % 53.7 % (38.7-80.0); PLATELET COUNT 151 x10e3/uL (140-360); RED BLOOD COUNT 4.71 x10e6/uL (4.3-5.7); RED CELL DISTRIBUTION WIDTH 13.2 % (11.7-14.4)
[2017-08-07 06:26] LABS: ANION GAP 9.9 mmol/L (8-16); BLOOD UREA NITROGEN 10 mg/dL (7-26); BUN/CREATININE RATIO 13 (6-25); CALCIUM 9.1 mg/dL (8.4-10.2); CARBON DIOXIDE 28 mmol/L (22-29); CHLORIDE 108 mmol/L (98-107); CHOL/HDL RATIO 3.4 (3.9-4.7); CHOLESTEROL 121 MD/DL (0-199); CREATININE, SERUM 0.79 mg/dL (0.72-1.25); EST GLOMERULAR FILTRATION RATE > 60 ML/MIN (60-); GLUCOSE 119 mg/dL (74-118); HDL CHOLESTEROL 36 MG/DL (40-60); LDL CHOLESTEROL 60 MG/DL (60-130); POTASSIUM 3.9 mmol/L (3.5-5.1); SODIUM 142 mmol/L (136-145); TRIGLYCERIDES 125 MG/DL (0-149)
[2017-08-07] MEDS ORDERED: PANTOPRAZOLE SOD 40 MG TABEC PO SCH (07:30)
[2017-08-07] MEDS: MORPHINE SULFATE 2 MG/ML SYR IV PRN ×2 (07:43→09:36)
[2017-08-07] MEDS: ASPIRIN 81 MG ENTERIC COATED PO SCH (08:58)
[2017-08-07] MEDS: FLUTICASONE PROPIONATE NASAL SPRAY NS SCH ×2 (08:58→18:54)
[2017-08-07] MEDS: DIPHENHYDRAMINE HCL 25 MG CAP PO SCH ×2 (08:58→18:54)
[2017-08-07] MEDS: FELODIPINE 5 MG TAB CR PO SCH (08:59)
[2017-08-07] MEDS: CLOPIDOGREL BISULFATE 75 MG TAB PO SCH (08:59)
[2017-08-07] MEDS: LOSARTAN POTASSIUM 25 MG TAB PO SCH (08:59)
[2017-08-07] MEDS: HYDROCHLOROTHIAZIDE 25 MG TAB PO SCH (08:59)
[2017-08-07] MEDS: BACLOFEN 10 MG TAB PO SCH ×2 (08:59→18:54)
[2017-08-07] MEDS: LIDOCAINE 5% PATCH TP SCH (08:59)
[2017-08-07] MEDS: GLIPIZIDE 5 MG TAB PO SCH (08:59)
[2017-08-07] MEDS ORDERED: CLOPIDOGREL BISULFATE 75 MG TAB PO SCH ×2 (09:00)
[2017-08-07] MEDS ORDERED: METOPROLOL SUCCINATE 50 MG TAB XL PO SCH (09:00)
[2017-08-07] MEDS ORDERED: FELODIPINE 5 MG TAB CR PO SCH (09:00)
[2017-08-07] MEDS ORDERED: PAROXETINE HCL 20 MG TAB PO SCH (09:00)
[2017-08-07] MEDS ORDERED: ASPIRIN 81 MG CHEW TAB PO SCH (09:00)
[2017-08-07] MEDS: SENNOSIDES 8.6 MG TAB PO SCH ×2 (09:00→17:00)
[2017-08-07] MEDS ORDERED: LOSARTAN POTASSIUM 25 MG TAB PO SCH (09:00)
[2017-08-07] MEDS: DOXAZOSIN MESYLATE 2 MG TAB PO SCH (09:00)
[2017-08-07] MEDS: INSULIN REGULAR, HUMAN 100 UNIT/1 ML 3ML VIAL SQ SCH ×4 (09:39→22:31)
[2017-08-07] MEDS: TOPIRAMATE 100 MG TAB PO SCH ×2 (09:40→18:54)
[2017-08-07] MEDS: ISOSORBIDE MONONITRATE 20 MG TAB PO SCH ×2 (09:40→18:54)
[2017-08-07] MEDS: FAMOTIDINE 20 MG TAB PO SCH ×3 (09:44→22:58)
[2017-08-07] MEDS: ENOXAPARIN SODIUM INJ 100 MG/ML SYR SC SCH (22:30)
[2017-08-07] MEDS: SIMVASTATIN 20 MG TAB PO SCH (22:30)
[2017-08-07] MEDS: METOPROLOL SUCCINATE 50 MG TAB XL PO SCH (22:30)
[2017-08-08] VITALS (7 sets, daily range): BP systolic 116–155; BP diastolic 60–73
[2017-08-08] MEDS: INSULIN REGULAR, HUMAN 100 UNIT/1 ML 3ML VIAL SQ SCH ×4 (07:30→21:28)
[2017-08-08] MEDS ORDERED: REGADENOSON 0.4 MG/5 ML SYR IV ONE (08:30)
[2017-08-08] MEDS: GLIPIZIDE 5 MG TAB PO SCH (09:00)
[2017-08-08] MEDS: ASPIRIN 81 MG ENTERIC COATED PO SCH (09:00)
[2017-08-08] MEDS: FELODIPINE 5 MG TAB CR PO SCH (09:00)
[2017-08-08] MEDS: ISOSORBIDE MONONITRATE 20 MG TAB PO SCH ×2 (09:00→16:38)
[2017-08-08] MEDS: TOPIRAMATE 100 MG TAB PO SCH ×2 (09:00→16:39)
[2017-08-08] MEDS: DOXAZOSIN MESYLATE 2 MG TAB PO SCH ×2 (09:00→22:36)
[2017-08-08] MEDS: BACLOFEN 10 MG TAB PO SCH ×2 (09:00→16:38)
[2017-08-08] MEDS: LOSARTAN POTASSIUM 25 MG TAB PO SCH (09:00)
[2017-08-08] MEDS: DIPHENHYDRAMINE HCL 25 MG CAP PO SCH ×2 (09:00→16:38)
[2017-08-08] MEDS: CLOPIDOGREL BISULFATE 75 MG TAB PO SCH (09:00)
[2017-08-08] MEDS: SENNOSIDES 8.6 MG TAB PO SCH ×2 (09:00→16:38)
[2017-08-08] MEDS: HYDROCHLOROTHIAZIDE 25 MG TAB PO SCH (09:00)
[2017-08-08] MEDS: FAMOTIDINE 20 MG TAB PO SCH ×3 (09:12→21:28)
[2017-08-08] MEDS: MORPHINE SULFATE 2 MG/ML SYR IV PRN ×2 (09:20→16:35)
[2017-08-08] MEDS: ONDANSETRON HCL INJ 2 MG/ML VIAL IV PRN ×2 (09:20→16:35)
[2017-08-08] MEDS: LIDOCAINE 5% PATCH TP SCH (09:37)
[2017-08-08] MEDS: FLUTICASONE PROPIONATE NASAL SPRAY NS SCH ×2 (09:37→16:38)
[2017-08-08] MEDS: ENOXAPARIN SODIUM INJ 100 MG/ML SYR SC SCH ×2 (09:37→21:25)
--- NOTE | 2017-08-08 17:22 | Cardiology Report ---
DATE OF STUDY: August 07, 2017 LEXISCAN NUCLEAR STRESS TEST INDICATION: Chest pain. TECHNIQUE: The patient was given 11 millicuries of Myoview. Resting images were obtained in the horizontal long axis, vertical long axis and short axis. The patient was then hooked up to the EKG machine, and Lexiscan was infused over 15 seconds. During Lexiscan infusion, the patient had no chest pain and no EKG changes. Immediately after Lexiscan infusion, the patient was given 33 millicuries of Myoview. Stress images were obtained 30 minutes after completion of Lexiscan infusion. Stress images were obtained in the horizontal long axis and vertical long axis and short axis. RESULTS 1. The resting EKG demonstrated normal sinus rhythm with nonspecific ST and T wave changes. 2. There were no EKG changes and no symptoms during Lexiscan infusion. 3. The stress images demonstrated decreased perfusion to the lateral wall. There was normal perfusion to all segments of the myocardium on the resting images. 4. There were normal left ventricular size and function with an ejection fraction of 66%. CONCLUSION: The patient has reversible defect in the lateral wall concerning for myocardial ischemia. The patient will require cardiac catheterization to evaluate the abnormal stress test. Job#: [id number] cc:APRIL CROUCH MD
[2017-08-08] MEDS: METOPROLOL SUCCINATE 50 MG TAB XL PO SCH (21:00)
[2017-08-08] MEDS: SIMVASTATIN 20 MG TAB PO SCH (21:25)
[2017-08-09] VITALS (7 sets, daily range): BP systolic 104–153; BP diastolic 56–71
[2017-08-09] MEDS: NITROGLYCERIN 0.4 MG SUBL SL PRN (00:16)
[2017-08-09] MEDS: MORPHINE SULFATE 2 MG/ML SYR IV PRN ×3 (00:42→11:30)
[2017-08-09] MEDS: ONDANSETRON HCL INJ 2 MG/ML VIAL IV PRN ×3 (00:42→11:30)
[2017-08-09] MEDS: INSULIN REGULAR, HUMAN 100 UNIT/1 ML 3ML VIAL SQ SCH ×4 (07:30→20:35)
[2017-08-09] MEDS: FLUTICASONE PROPIONATE NASAL SPRAY NS SCH ×2 (08:09→16:26)
[2017-08-09] MEDS: HYDROCHLOROTHIAZIDE 25 MG TAB PO SCH (08:10)
[2017-08-09] MEDS: ISOSORBIDE MONONITRATE 20 MG TAB PO SCH ×2 (08:10→16:27)
[2017-08-09] MEDS: DIPHENHYDRAMINE HCL 25 MG CAP PO SCH ×2 (08:10→16:27)
[2017-08-09] MEDS: ASPIRIN 81 MG ENTERIC COATED PO SCH (08:10)
[2017-08-09] MEDS: LOSARTAN POTASSIUM 25 MG TAB PO SCH (08:10)
[2017-08-09] MEDS: GLIPIZIDE 5 MG TAB PO SCH (08:10)
[2017-08-09] MEDS: FELODIPINE 5 MG TAB CR PO SCH (08:11)
[2017-08-09] MEDS: CLOPIDOGREL BISULFATE 75 MG TAB PO SCH (08:11)
[2017-08-09] MEDS: BACLOFEN 10 MG TAB PO SCH ×2 (08:11→16:27)
[2017-08-09] MEDS: SENNOSIDES 8.6 MG TAB PO SCH ×2 (08:11→16:27)
[2017-08-09] MEDS: TOPIRAMATE 100 MG TAB PO SCH ×2 (08:11→16:27)
[2017-08-09] MEDS: FAMOTIDINE 20 MG TAB PO SCH ×3 (08:12→20:37)
[2017-08-09] MEDS: ENOXAPARIN SODIUM INJ 100 MG/ML SYR SC SCH ×2 (08:45→20:36)
[2017-08-09] MEDS: LIDOCAINE 5% PATCH TP SCH (08:45)
[2017-08-09] MEDS ORDERED: LIDOCAINE HCL 2% LOCAL 20 ML VIAL ONE (12:17)
[2017-08-09] MEDS ORDERED: HEPARIN SOD/SOD CHLORIDE 2,000 ML ONE (12:19)
[2017-08-09] MEDS ORDERED: MIDAZOLAM HCL 2 MG/2 ML VIAL ONE ×2 (12:30→12:32)
[2017-08-09] MEDS ORDERED: FENTANYL CITRATE/PF 100MCG/2 ML INJ ONE (12:30)
[2017-08-09] MEDS ORDERED: IOPAMIDOL 370 MG/ML 200 ML INFUS..BTL INJ ONE (12:31)
[2017-08-09] MEDS ORDERED: SODIUM CHLORIDE 0.9% 1000ML 1,000 ML ONE (12:31)
[2017-08-09] MEDS ORDERED: IOPAMIDOL 300MG/ML 100 ML INFUS..BTL IV ONE (13:13)
[2017-08-09] MEDS: ACETAMINOPHEN/CODEINE 300MG - 30MG TAB PO PRN (14:20)
--- NOTE | 2017-08-09 14:49 | Operative Report ---
DATE OF PROCEDURE: August 09, 2017 PROCEDURE: Left heart catheterization with grafts. INDICATIONS: Angina and coronary artery disease. COMPLICATIONS: None. TECHNIQUE: The right groin was draped and prepped in the usual fashion. The area was anesthetized with lidocaine. Standard Seldinger technique was used to place a 6-Bahamian sheath into the right femoral artery without difficulty. A JL4 catheter was used to selectively engage the left coronary artery. A 3DRC catheter was used to selectively engage the right coronary artery. The 3DRC catheter was used to selectively engage the saphenous vein graft to the diagonal artery and the saphenous vein graft to the obtuse marginal branch of the circumflex. An RCB catheter was used to selectively engage the saphenous vein graft to the right coronary artery. A pigtail catheter was used to perform a left ventriculogram. An Angio-Seal device was used for closure. RESULTS 1. There is a normal left main trunk. 2. There is a large left anterior descending artery, which was immediately occluded after the origin of a large septal calender let off operator. 3. There was a medium-size ramus intermedius branch that had about a 60% to 70% stenosis proximally. 4. There was a medium-size AV circumflex artery, which gave rise to a large bifurcating obtuse marginal branch. There was about 70% stenosis in the distal obtuse marginal branch. 5. There was a large, dominant, right coronary artery which was completely occluded. 6. The saphenous vein graft to the right coronary artery was widely patent. 7. Sequential saphenous vein graft to the 1st and 2nd obtuse marginal branches of the circumflex artery was patent. 8. The saphenous vein graft to the ramus intermedius artery was patent. 9. The left internal mammary artery graft to the left anterior descending artery was widely patent. 10. There were normal left ventricular size and function with an ejection fraction of 60%. CONCLUSION: The patient has 3 patent saphenous vein grafts and a patent left internal mammary artery graft to the left anterior descending artery. I would favor that the patient's angina be treated medically at this time. Job#: [id number] cc:APRIL CROUCH MD
[2017-08-09] MEDS ORDERED: RANOLAZINE 500 MG TABSR PO SCH (17:00)
[2017-08-09] MEDS: METOPROLOL SUCCINATE 50 MG TAB XL PO SCH (20:35)
[2017-08-09] MEDS: SIMVASTATIN 20 MG TAB PO SCH (20:36)
[2017-08-09] MEDS: DOXAZOSIN MESYLATE 2 MG TAB PO SCH (20:36)
[2017-08-10] VITALS: BP 129/68
[2017-08-10] MEDS: ACETAMINOPHEN/CODEINE 300MG - 30MG TAB PO PRN (01:02)
[2017-08-10] MEDS: NITROGLYCERIN 0.4 MG SUBL SL PRN (01:20)
[2017-08-10] MEDS: MORPHINE SULFATE 2 MG/ML SYR IV PRN ×2 (01:35→08:12)
[2017-08-10] MEDS: ONDANSETRON HCL INJ 2 MG/ML VIAL IV PRN ×2 (01:35→08:12)
[2017-08-10 04:00] VITALS: BP 117/57
[2017-08-10 07:12] LABS: BASOPHILS % 0.3 % (0.0-1.0); EOSINOPHILS # (AUTO) 0.3 (0.0-0.4); EOSINOPHILS % 4.2 % (0.0-6.0); HEMATOCRIT 40.3 % (38.2-49.6); HEMOGLOBIN 14.1 g/dL (14.0-18.0); LYMPHOCYTES # (AUTO) 1.8 (1.0-3.2); LYMPHOCYTES % 29.5 % (18.0-39.1); MEAN CORPUSCULAR HEMOGLOBIN 30.5 pg (28-32); MONOCYTES # (AUTO) 0.7 (0.2-0.8); MONOCYTES % 11.5 % (4.4-11.3); NEUTROPHILS # (AUTO) 3.3 (2.1-6.9); NEUTROPHILS % 54.2 % (38.7-80.0); PLATELET COUNT 183 x10e3/uL (140-360); RED BLOOD COUNT 4.63 x10e6/uL (4.3-5.7)
[2017-08-10 07:34] LABS: ANION GAP 12.9 mmol/L (8-16); BLOOD UREA NITROGEN 13 mg/dL (7-26); BUN/CREATININE RATIO 15 (6-25); CARBON DIOXIDE 26 mmol/L (22-29); CHLORIDE 106 mmol/L (98-107); CREATININE, SERUM 0.88 mg/dL (0.72-1.25); EST GLOMERULAR FILTRATION RATE > 60 ML/MIN (60-); GLUCOSE 109 mg/dL (74-118); POTASSIUM 3.9 mmol/L (3.5-5.1); SODIUM 141 mmol/L (136-145)
[2017-08-10 08:23] VITALS: BP 144/65
== END 2017-08-10 10:40 | disposition home or self-care (01) | DRG 287 ==
LOC: ER 07:28 → ERHOLD 10:37 → IMCU 11:36 → OBSVTOIN 08-09 08:19 → MED/SURG 08-09 20:42
PROVIDERS: ADMIT Internal Medicine; ATTEND Internal Medicine
PROC: 4A023N7 Measurement of Cardiac Sampling and Pressure, Left Heart, Percutaneous Approach (ICD-10-PCS; principal; 2017-08-09)
PROC: B2111ZZ Fluoroscopy of Multiple Coronary Arteries using Low Osmolar Contrast (ICD-10-PCS; 2017-08-09)
PROC: B2131ZZ Fluoroscopy of Multiple Coronary Artery Bypass Grafts using Low Osmolar Contrast (ICD-10-PCS; 2017-08-09)
PROC: B2151ZZ Fluoroscopy of Left Heart using Low Osmolar Contrast (ICD-10-PCS; 2017-08-09)
PROC: B2181ZZ Fluoroscopy of Left Internal Mammary Bypass Graft using Low Osmolar Contrast (ICD-10-PCS; 2017-08-09)
DX: I25.119 Atherosclerotic heart disease of native coronary artery with unspecified angina pectoris (principal); E11.9 Type 2 diabetes mellitus without complications; I10 Essential (primary) hypertension; E66.9 Obesity, unspecified; E78.5 Hyperlipidemia, unspecified; Z95.1 Presence of aortocoronary bypass graft; R01.1 Cardiac murmur, unspecified
CPT/HCPCS: 36140; 36415; 71045; 71260; 74176; 77002; 78452; 80048; 80053; 80061; 81001; 82550; 82553; 82948; 83690; 83880; 84484; 85025; 85379; 85610; 85730; 93005; 93017; 93306; 93452; 93459; 99284; A9502; C1769; G0378; J1650; J2001; J2250; J2270; J2405; J7030; Q9967